=== PATIENT | male | born 1945 | race Caucasian/White ===

== ENCOUNTER 2020-06-15 10:54 | Day surgery (SDC) | payer MEDICARE, BC ==
[2020-06-15] MEDS: Polymyxin B/Trimethoprim 10 ML Bottle EYELF SCH ×4 (11:20→13:06)
[2020-06-15] MEDS: Brimonidine 0.2% Ophth Soln 5 ML Bottle EYELF SCH ×4 (11:25→13:06)
[2020-06-15] MEDS: Phenylephrine 2.5% Ophth Soln 2 ML Bot EYELF SCH ×5 (11:30→12:36)
[2020-06-15] MEDS: Tropicamide 1% Ophth Soln 15 ML Bottle EYELF SCH ×4 (11:35→12:21)
--- NOTE | 2020-06-15 11:48 | PCM.PREANE ---
Preanesthetic Assessment - Procedure Proposed Procedure: left eye IOL - Anesthesia/Transfusion/Family Hx Anesthesia History: Prior Anesthesia Without Reaction Family History of Anesthesia Reaction: No Transfusion History: No Prior Transfusion(s) Intubation History: Unknown - Review of Systems General: No Symptoms Pulmonary: No Symptoms Cardiovascular: No Symptoms Gastrointestinal: No Symptoms Neurological: No Symptoms Other: Reports: None, Easy Bleeding, Easy Bruising (on aspirin baby asprin yesterday ) - Physical Assessment NPO Status Date: 06/15/20 NPO Status Time: 18:00 Height: 1.73 m Weight: 104.326 kg ASA Class: 2 Mental Status: Alert & Oriented x3 Dentition: Reports: Normal Dentition Thyro-Mental Finger Breadths: 3 Mouth Opening Finger Breadths: 5 ROM/Head Extension: Full Lungs: Clear to Auscultation, Normal Respiratory Effort Cardiovascular: Regular Rate, Regular Rhythm - Allergies Allergies/Adverse Reactions: Allergies Allergy/AdvReac Type Severity Reaction Status Date / Time amoxicillin [From Augmentin] Allergy Nausea and Verified 06/15/20 11:45 Vomiting clavulanic acid Allergy Nausea and Verified 06/15/20 11:45 [From Augmentin] Vomiting - Blood Blood Available: No - Anesthesia Plan Pre-Op Medication Ordered: None - Acknowledgements Anesthesia Type Planned: MAC Pt an Appropriate Candidate for the Planned Anesthesia: Yes Alternatives and Risks of Anesthesia Discussed w Pt/Guardian: Yes Pt/Guardian Understands and Agrees with Anesthesia Plan: Yes PreAnesthesia Questionnaire - HOME MEDS Home Medications: Home Meds Aspirin 81 mg PO DAILY 06/14/20 [History] atorvaSTATin Calcium [Lipitor] 20 mg PO DAILY 06/14/20 [History] - CURRENT (IN HOUSE) MEDS Current Meds: Current Medications Brimonidine Tartrate (Brimonidine 0.2% Ophth Soln 5 Ml Bottle) 0 ml EYELF ASDIRECTED DILLON Stop: 06/15/20 18:00 Last Admin: 06/15/20 11:25 Dose: 1 drop Documented by: Cefuroxime Sodium (Cefuroxime 10 Mg/Ml Syringe) 0 mg EYELF ASDIRECTED DILLON Stop: 06/15/20 18:00 Lidocaine HCl (Lidocaine 1% Pf 2 Ml Sdv) 0 ml INJECT ASDIRECTED DILLON Stop: 06/15/20 18:00 Phenylephrine HCl (Phenylephrine 2.5% Ophth Soln 2 Ml Bot) 0 ml EYELF ASDIRECTED DILLON Stop: 06/15/20 18:00 Last Admin: 06/15/20 11:30 Dose: 1 drop Documented by: Pilocarpine HCl (Pilocarpine 4% Ophth Soln 15 Ml Bot) 0 ml EYELF ASDIRECTED DILLON Stop: 06/15/20 18:00 Polymyxin/Trimethoprim Sulfate (Polymyxin B/Trimethoprim 10 Ml Bottle) 0 ml EYELF ASDIRECTED DILLON Stop: 06/15/20 18:00 Last Admin: 06/15/20 11:20 Dose: 1 drop Documented by: Tetracaine HCl (Tetracaine Hcl/Pf 0.5% 4 Ml Bottle) 0 ml EYEBOTH ASDIRECTED DILLON Stop: 06/15/20 18:00 Tropicamide (Tropicamide 1% Ophth Soln 15 Ml Bottle) 0 ml EYELF ASDIRECTED DILLON Stop: 06/15/20 18:00 Last Admin: 06/15/20 11:35 Dose: 1 drop Documented by:
[2020-06-15] MEDS: Tetracaine HCl/PF 0.5% 4 ML Bottle EYEBOTH SCH ×3 (12:25→13:00)
[2020-06-15] MEDS: Lidocaine 1% PF 2 ML SDV INJECT SCH ×2 (12:50→12:59)
[2020-06-15] MEDS: Cefuroxime 10 MG/ML SYRINGE EYELF SCH ×2 (13:00→13:05)
[2020-06-15] MEDS: Pilocarpine 4% Ophth Soln 15 ML Bot EYELF SCH ×2 (13:00→13:06)
--- NOTE | 2020-06-15 13:36 | PCM48HPAN ---
Post Anesthesia Note - EVALUATION WITHIN 48HRS OF ANESTHETIC Vital Signs in Normal Range: Yes Patient Participated in Evaluation: Yes Respiratory Function Stable: Yes Airway Patent: Yes Cardiovascular Function Stable: Yes Hydration Status Stable: Yes Pain Control Satisfactory: Yes Nausea and Vomiting Control Satisfactory: Yes Mental Status Recovered: Yes
[2020-06-15 15:52] VITALS: BP 160/70; PULSE 64
== END 2020-06-15 13:19 | disposition home or self-care (01) ==
LOC: JD.SDS 10:54
PROVIDERS: ATTEND Ophthalmology
DX: H25.813 Combined forms of age-related cataract, bilateral (principal); H02.834 Dermatochalasis of left upper eyelid; H02.831 Dermatochalasis of right upper eyelid; H16.223 Keratoconjunctivitis sicca, not specified as Sjogren's, bilateral; E78.00 Pure hypercholesterolemia, unspecified; Z79.82 Long term (current) use of aspirin; Z79.899 Other long term (current) drug therapy; Z88.1 Allergy status to other antibiotic agents
CPT/HCPCS: 66984; C1780; J0697

== ENCOUNTER 2020-07-13 08:40 | Day surgery (SDC) | payer MEDICARE, BC ==
[2020-07-13] MEDS: Polymyxin B/Trimethoprim 10 ML Bottle EYERT SCH ×4 (09:49→12:08)
[2020-07-13] MEDS: Brimonidine 0.2% Ophth Soln 5 ML Bottle EYERT SCH ×4 (09:54→12:08)
[2020-07-13] MEDS: Phenylephrine 2.5% Ophth Soln 2 ML Bot EYERT SCH ×6 (10:03→12:07)
[2020-07-13] MEDS: Tropicamide 1% Ophth Soln 15 ML Bottle EYERT SCH ×4 (10:09→10:47)
[2020-07-13] MEDS: Tetracaine HCl/PF 0.5% 4 ML Bottle EYEBOTH SCH ×3 (10:50→12:07)
--- NOTE | 2020-07-13 10:50 | PCM.PREANE ---
Preanesthetic Assessment - Procedure Proposed Procedure: Right Cataract extraction with IOL - Anesthesia/Transfusion/Family Hx Anesthesia History: Prior Anesthesia Without Reaction Transfusion History: No Prior Transfusion(s) Intubation History: Unknown - Review of Systems General: No Symptoms Pulmonary: No Symptoms Cardiovascular: No Symptoms Gastrointestinal: No Symptoms Neurological: No Symptoms Other: Reports: None (Obesity) - Physical Assessment NPO Status Date: 07/12/20 NPO Status Time: 19:00 Vital Signs: 135/74 58 97% Height: 1.75 m Weight: 106.594 kg ASA Class: 2 Mental Status: Alert & Oriented x3 Airway Class: Mallampati = 2 Dentition: Reports: Missing Tooth/Teeth, Caries Thyro-Mental Finger Breadths: 3 Mouth Opening Finger Breadths: 3 ROM/Head Extension: Full Lungs: Clear to Auscultation, Normal Respiratory Effort Cardiovascular: Regular Rhythm, Bradycardia - Allergies Allergies/Adverse Reactions: Allergies Allergy/AdvReac Type Severity Reaction Status Date / Time No Known Allergies Allergy Verified 07/09/20 11:31 - Acknowledgements Anesthesia Type Planned: MAC Pt an Appropriate Candidate for the Planned Anesthesia: Yes Alternatives and Risks of Anesthesia Discussed w Pt/Guardian: Yes Pt/Guardian Understands and Agrees with Anesthesia Plan: Yes PreAnesthesia Questionnaire - HOME MEDS Home Medications: Home Meds Aspirin 81 mg PO DAILY 06/14/20 [History] atorvaSTATin Calcium [Lipitor] 20 mg PO DAILY 06/14/20 [History] - CURRENT (IN HOUSE) MEDS Current Meds: Current Medications Brimonidine Tartrate (Brimonidine 0.2% Ophth Soln 5 Ml Bottle) 0 ml EYERT ASDIRECTED DILLON Stop: 07/13/20 18:00 Last Admin: 07/13/20 10:38 Dose: 1 drop Documented by: Cefuroxime Sodium (Cefuroxime 10 Mg/Ml Syringe) 0 mg EYERT ASDIRECTED DILLON Stop: 07/13/20 18:00 Lidocaine HCl (Lidocaine 1% Pf 2 Ml Sdv) 0 ml INJECT ASDIRECTED DILLON Stop: 07/13/20 18:00 Phenylephrine HCl (Phenylephrine 2.5% Ophth Soln 2 Ml Bot) 0 ml EYERT ASDIRECTED DILLON Stop: 07/13/20 18:00 Last Admin: 07/13/20 10:42 Dose: 1 drop Documented by: Pilocarpine HCl (Pilocarpine 4% Ophth Soln 15 Ml Bot) 0 ml EYERT ASDIRECTED DILLON Stop: 07/13/20 18:00 Polymyxin/Trimethoprim Sulfate (Polymyxin B/Trimethoprim 10 Ml Bottle) 0 ml EYERT ASDIRECTED DILLNO Stop: 07/13/20 18:00 Last Admin: 07/13/20 10:34 Dose: 1 drop Documented by: Tetracaine HCl (Tetracaine Hcl/Pf 0.5% 4 Ml Bottle) 0 ml EYEBOTH ASDIRECTED DILLON Stop: 07/13/20 18:00 Tropicamide (Tropicamide 1% Ophth Soln 15 Ml Bottle) 0 ml EYERT ASDIRECTED DILLON Stop: 07/13/20 18:00 Last Admin: 07/13/20 10:47 Dose: 1 drop Documented by:
[2020-07-13] MEDS: Lidocaine 1% PF 2 ML SDV INJECT SCH ×2 (11:07→12:07)
[2020-07-13] MEDS: Cefuroxime 10 MG/ML SYRINGE EYERT SCH ×2 (11:16→12:08)
[2020-07-13] MEDS: Pilocarpine 4% Ophth Soln 15 ML Bot EYERT SCH ×2 (11:17→12:08)
[2020-07-13 14:53] VITALS: BP 113/69; PULSE 57
== END 2020-07-13 11:27 | disposition home or self-care (01) ==
LOC: JD.SDS 08:40
PROVIDERS: ATTEND Ophthalmology
DX: H25.811 Combined forms of age-related cataract, right eye (principal); H02.831 Dermatochalasis of right upper eyelid; H02.834 Dermatochalasis of left upper eyelid; H16.223 Keratoconjunctivitis sicca, not specified as Sjogren's, bilateral; E78.00 Pure hypercholesterolemia, unspecified; Z79.82 Long term (current) use of aspirin; Z79.899 Other long term (current) drug therapy; Z96.1 Presence of intraocular lens
CPT/HCPCS: 66984; J0697; C1780

== ENCOUNTER 2024-10-18 18:37 | Emergency (ER) | payer BC, MEDICARE ==
[2024-10-18] MEDS: Ondansetron 4 MG Tab.DIS PO ONE (19:19)
[2024-10-18] MEDS: Acetaminophen/HYDROcodone 325-5 MG Tab PO ONE (19:19)
[2024-10-18] MEDS: Diphtheria,Pertussis(Acell),Tetanus Vaccine 0.5 ML Syringe IM ONE (19:20)
[2024-10-18 21:24] VITALS: BP 140/64; PULSE 79
== END 2024-10-18 21:07 | disposition home or self-care (01) ==
LOC: JD.ED 18:37
DX: S52.571A Other intraarticular fracture of lower end of right radius, initial encounter for closed fracture (principal); S22.43XA Multiple fractures of ribs, bilateral, initial encounter for closed fracture; S00.03XA Contusion of scalp, initial encounter; M54.6 Pain in thoracic spine; Z88.0 Allergy status to penicillin; Z88.8 Allergy status to other drugs, medicaments and biological substances; Z79.82 Long term (current) use of aspirin; Z79.899 Other long term (current) drug therapy; W01.198A Fall on same level from slipping, tripping and stumbling with subsequent striking against other object, initial encounter; Z23 Encounter for immunization
CPT/HCPCS: 70450; 71250; 73110; 74176; 90471; 90715; 99284; A9270